=== PATIENT | male | born 1975 | race Caucasian/White ===

== ENCOUNTER 2020-04-20 02:29 | Outpatient (CLI) | payer BC, SELFPAY ==
[2020-04-20 12:46] LABS: TSH (W/Ref FT4) 2.17 uIU/mL (0.36-3.74)
[2020-04-20 14:39] LABS: ALT 56 U/L (16-63); AST 43 U/L (15-37); Albumin 3.8 g/dL (3.4-5.0); Alkaline Phosphatase 56 U/L (46-116); Anion Gap 7.7 mmol/L (3-11); BUN 16 mg/dL (7-18); Bilirubin, Total 0.5 mg/dL (0.2-1.0); CO2 26.3 mmol/L (21.0-32.0); CREATININE 0.89 mg/dL (0.70-1.30); Calcium 8.8 mg/dL (8.5-10.1); Calculated LDL 108 mg/dL (<100); Chloride 105 mmol/L (98-107); Cholesterol 172 mg/dL (<200); Glucose 105 mg/dL (74-106); HDL Cholesterol 48 mg/dL (40-60); Potassium 4.4 mmol/L (3.5-5.1); Sodium 139 mmol/L (136-145); Total Protein 6.9 g/dL (6.4-8.2); Triglyceride 80 mg/dL (<150)
== END 2020-04-20 02:49 ==
PROVIDERS: PCP Family Medicine; Visit Provider Family Medicine
DX: E03.9 Hypothyroidism, unspecified (principal); E78.5 Hyperlipidemia, unspecified
CPT/HCPCS: 36415; 80053; 80061; 84443

== ENCOUNTER 2020-12-09 09:26 | Outpatient (CLI) | payer OTHER, SELFPAY ==
[2020-12-10 20:01] LABS: COVID-19 RT-PCR UVMMC Result Positive (Negative)
== END 2020-12-09 09:27 | disposition home or self-care (01) ==
PROVIDERS: PCP Family Medicine; Visit Provider Family Medicine
DX: Z20.822 Contact with and (suspected) exposure to COVID-19 (principal)
CPT/HCPCS: U0003

== ENCOUNTER 2022-11-25 12:02 | Day surgery (SDC) | payer BC, SELFPAY ==
--- NOTE | 2022-11-25 05:28 | W.COLOREPORT ---
Date of service: 11/25/22 Time of Service: 15:14 Colonoscopy Report Date of procedure: 11/25/22 Pre-op diagnosis general: Screening colonoscopy Post-op diagnosis procedure note: other (Colon polyps) Procedure: Colonoscopy with polypectomy Surgeon: Gil Winters Anesthesia Type: General LMA/ETT Estimated blood loss (mL): 5 Pathology: other (Polyps at 20 cm) Complications: None Disposition: same day Indications: José Miguel is 47 years old. He is here for his first screening colonoscopy Prep: Miralax/Dulcolax Procedure Start Time: 14:50 Procedure End Time: 15:08 Retraction Time: 12 Findings: Colon polyps at 20 cm Procedure Description: After the induction of monitored anesthetic care, and with the patient in left lateral decubitus position, I began by performing an external anorectal exam.? Perineum and skin were normal, as was the anal verge.? There was no evidence of external hemorrhoids.? Next, I performed a digital rectal exam.? I did not appreciate any abnormal findings.? Next, I advanced a colonoscope into the rectal vault.? I performed retroflexion.? This appeared normal to me..? Using insufflation, I then advanced the colonoscope beyond the rectal folds and into the sigmoid colon before advancing towards the cecum.? The quality of the prep was adequate.? The scope was noted to be in the cecum by identification of the ileocecal valve and appendiceal orifice.? I then began withdrawing the colonoscope using repeated irrigation as necessary for full evaluation of the colonic mucosa. Around 20 cm from the anal verge I identified 2 sessile polyps. ?Both were about 0.25 cm. I removed both with cold forcep polypectomy.. ?I examined the area, and there was minimal bleeding. ?Once this was completed, I continued to withdraw the scope and examine the remainder of the colonic mucosa.?Once the scope was withdrawn to the level of the rectum, great care was taken to examine portions of the rectal folds.? Finally, the scope was withdrawn and the patient was brought to the same-day surgery recovery unit as the anesthetic wore off. ?The findings and instructions were shared with the patient prior to discharge.
--- NOTE | 2022-11-25 05:29 | W.PM.DSUDISC ---
Date of service: 11/25/22 Time of Service: 15:13 Discharge Plan Disposition Patient Disposition: Home Condition: Good Discharge Details Reason For Visit: Colonoscopy Attending Provider: Gil Winters Primary Care Provider: Gio Hanks Home Meds and New Rx's Prescriptions: Continued levothyroxine 150 mcg tablet 150 mcg PO DAILY Qty: 90 3RF Discontinued bisacodyl [Dulcolax (bisacodyl)] 5 mg tablet,delayed release (DR/EC) 5 mg PO ONCE Qty: 4 0RF Rx Instructions: Take according to provider's instructions for colonoscopy prep. polyethylene glycol 3350 17 gram/dose powder 17 g PO ONCE Qty: 238 0RF Rx Instructions: To be taken as directed by prescriber's office for colonoscopy prep. Discharge Instructions Instructions: Colorectal Polyps (GEN) Additional Instructions: José Miguel, we were able to complete your colonoscopy today without any issues. You had 2 small polyps that I removed completely. It will take a little time to get the results of what kinds of polyps they are. I will be in touch at that point and recommend the timeline for your next colonoscopy. If you have any questions at all, please feel free to give me a call. 1. If tolerated, consume a soft, low fiber diet for 1-2 days. 2. Do not drive, drink alcohol, operate machinery, make critical decisions, or do activities that require coordination or balance for 24 hours. 3. Because air was put into your colon during the procedure, expelling air from your rectum (passing gas or farting) is normal. 4. You may not have a bowel movement for 1-3 days because of the colonoscopy prep. This is normal. 5. Go directly to the emergency room if you notice any of the following: Develop chills (warm to touch), or if you have a thermometer and your temperature is above 101 Difficulty breathing or difficultly swallowing Persistent vomiting Severe abdominal pain, other than gas cramps Severe chest pain Black, tarry stools Any bleeding ? exceeding one tablespoon 6. Call your physician if the site where your intravenous was started becomes red, swollen, painful, and warm to touch. 7. Your physician has reviewed your pre-procedure medications. Please continue to take those medications as previously ordered. You will be given specific information/education regarding any changes to your medications before leaving. Activity:: Activity as Tolerated Diet:: As Tolerated Discharge Orders Discharge Orders: Discharge Order (Routine); Ordered 11/25/22 Ordered By: Gil Winters
[2022-11-25 13:22] VITALS: BP 149/101; PULSE 63; RESP 16; TEMP 36.3; O2SAT 99
--- NOTE | 2022-11-25 14:03 | W.ANESPRE ---
General Info Date of Service Date Performed: 11/25/22 Height: 6 ft 5 in Weight: 131.9 kg Body Mass Index (BMI): 34.4 Surgical Procedure: Operation Date: 11/25/22 14:35 Proposed Procedure Side Surgeon p Nawaf Winters MD Meds Allergies and Home Medications Allergies Allergy/AdvReac Type Severity Reaction Status Date / Time No Known Allergies Allergy Verified 11/24/22 14:52 Home Medication Medication Instructions Recorded levothyroxine 150 mcg tablet 150 mcg PO DAILY #90 tabs 07/29/22 Current Visit Medications: Current Medications Generic Name Dose Route Start Last Admin Trade Name Freq PRN Reason Stop Dose Admin Hyoscyamine Sulfate 0.125 mg 11/25/22 05:30 Hyoscyamine 0.125 Mg Sl/Oral/Chew SL DIRECTED PRN Ringer's Solution 1,000 mls @ 80 mls/hr 11/25/22 06:00 IV 11/25/22 23:59 INFUSION KIRBY IV Miscellaneous Supplies 1 each 11/25/22 06:00 Iv Access IV 11/25/22 23:59 DIRECTED KIRBY Ondansetron HCl 4 mg 11/25/22 05:30 Ondansetron 4 Mg/2 Ml Vial IVP Q4H PRN PRN Nausea / Vomiting Sodium Chloride 0 ml 11/25/22 06:00 Normal Saline Flush 10 Ml Syr IV 11/25/22 23:59 PRN PRN Sodium Chloride 0 ml 11/25/22 06:00 Normal Saline 10 Ml Vial IJ 11/25/22 23:59 DIRECTED PRN Sterile Water 0 ml 11/25/22 06:00 Water,Injection,Sterile 10 Ml Vial IJ 11/25/22 23:59 DIRECTED PRN PFSH Active Problems Active Problems: Problem Status Onset Code Encounter for screening for malignant neoplasm of colon Z12.11 COVID-19 U07.1 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, initial encounter 06/12/20 S64.490A Laceration of right hand 06/12/20 S61.411A Benign positional vertigo H81.10 Migraine aura without headache G43.109 ADD (attention deficit disorder) F98.8 Sciatica M54.30 Hypothyroid E03.9 Hypertension I10 Hyperlipidemia E78.5 Fatty liver K76.0 Hemorrhoids K64.9 Medical History Medical History Hyperopia of both eyes with astigmatism Medical History Comments:: Dad has hard time going under due to alcohol consumption Surgical History Surgical History History of vasectomy Tobacco Smoking/Tobacco Use Status: Former Tobacco Use Alcohol Alcohol Intake: current Alcohol intake frequency: 0-2 drinks per day Alcohol type: beer Substance Use Substance use: Occasionally Substance use type: marijuana Details: alcohol t-21 days marijuana t-3 inhalation Vital Signs and Lab Results Vital Signs Most Recent Vital Signs in EMR: Most Recent Vital Signs Temp Pulse Resp BP Pulse Ox 36.3 C L 63 16 149/101 H 99 11/25/22 13:22 11/25/22 13:22 11/25/22 13:22 11/25/22 13:22 11/25/22 13:22 Lab Results Blood Type / Crossmatch: No Data to Display Complete Blood Count: No Data to Display Complete Metabolic Panel: No Data to Display Liver Function Panel: No Data to Display Coagulation Panel: No Data to Display Cardiac Panel: No Data to Display Arterial Blood Gas: No Data to Display Venous Blood Gas: No Data to Display Pancreas Panel: No Data to Display Thyroid Panel: No Data to Display Infectious Disease: No Data to Display Blood Cultures: No Data to Display Toxicology Panel: No Data to Display Anesthesia Assessment and Plan Anesthesia History Personal History: No History of Anesthesia Complications Family History: No Family History of Anesthesia Complications and Other Exercise Tolerance Exercise Tolerance: Metabolic Equivalents>4 Pertinent Negatives Pertinent Negatives: No Symptoms of GERD Cardiac & Pulmonary Exam Cardiac Exam: Normal S1/S2 Heart Sounds Pulmonary Exam: Clear Bilateral Breath Sounds Implantable Cardiac Device Does patient have a Pacemaker or an ICD?: No Airway Exam Known Difficult Airway: No Mallampati Class: 1 Mouth Opening: Normal (> 3cm) Thyromental Distance: Greater than 3 cm Neck Range of Motion: Full ROM Neck Circumference: Normal Teeth Condition: Normal Dentition ASA Classification ASA Score: ASA 2 Emergency Case?: No NPO Status NPO Status: NPO Clears >2 hours, Solids >8 hours Anesthesia Plan Resuscitation Status: Full Code Anesthesia Technique: General Anesthesia Airway Planned: Natural Airway Monitors Used: Standard Monitors
[2022-11-25] MEDS: Lactated Ringers 1,000 ML 80 ML IV (14:07)
[2022-11-25 14:33] VITALS: BMI 34.4
--- NOTE | 2022-11-25 15:04 | BOWEL_PTH ---
PATIENT: José Miguel Auguste LOC: [facility] U#:[id number] AGE/SX: 47/M ROOM: RE11/25/[address]: Gil Winters MD : 1975 BED: DIS: 11/25/2022 SPEC #: [id number] RECD: 11/25/22 16:30 STATUS: CHLOE REQ #: [id number] CHET: 11/25/22 15:[address]: Gil Winters DEPT: Surgical Specimen RECD BY: Jada Velazco ENTERED: 11/25/22 16:31 SP TYPE: Bowel OTHR DR: Gio Hanks DO Tissues: 1 - BIOPSY BOWEL Procedures: GROSS AND MICRO LEVEL 4 Comments: [id number]
[2022-11-25 15:14] VITALS: BP 133/88; PULSE 77; RESP 18; TEMP 36.3; O2SAT 95
--- NOTE | 2022-11-25 15:22 | W.ANESPOSTOP ---
Postoperative Evaluation Date, Time and Location Date Performed: 11/25/22 Time Performed: 15:23 Patient Location: Day Surgery Unit Vital Signs Most Recent Imported Vital Signs: Most Recent Vital Signs Temp Pulse Resp BP Pulse Ox 36.3 C L 77 18 133/88 95 11/25/22 15:14 11/25/22 15:14 11/25/22 15:14 11/25/22 15:14 11/25/22 15:14 Pain Score Most Recent Pain Score: Most Recent Pain Score Pain Level 0 11/25/22 15:14 Assessment Mental Status: Awake (Alert & Oriented to Patient Baseline) Airway and Respiratory Function: Patent airway with normal (patient baseline) respiratory exam Cardiovascular Function: Hemodynamically Stable Hydration Status: Adequately Hydrated Nausea & Vomiting: No Nausea or Vomiting Pain: Pt. Denies Any Pain Peripheral Nerve Block: Patient did not receive a nerve block
[2022-11-25 15:41] VITALS: BP 142/98; PULSE 61; RESP 16; TEMP 36.5; O2SAT 96
== END 2022-11-25 15:55 | disposition home or self-care (01) ==
PROVIDERS: PCP Family Medicine; Visit Provider Surgery
PROC: 0DJD8ZZ Inspection of Lower Intestinal Tract, Via Natural or Artificial Opening Endoscopic (ICD-10-PCS; CPT 45378; principal; 2022-11-25 14:30)
DX: Z12.11 Encounter for screening for malignant neoplasm of colon (principal); K63.5 Polyp of colon
CPT/HCPCS: 45380; 88305; J2704

== ENCOUNTER 2023-08-15 03:15 | Outpatient (CLI) | payer BC, SELFPAY ==
[2023-08-15 08:06] LABS: ALT 86 U/L (16-63); AST 40 U/L (15-37); Albumin 3.8 g/dL (3.4-5.0); Alkaline Phosphatase 67 U/L (46-116); Anion Gap 6.2 mmol/L (3-11); BUN 13 mg/dL (7-18); Bilirubin, Total 0.6 mg/dL (0.2-1.0); CO2 28.8 mmol/L (21.0-32.0); CREATININE 0.9 mg/dL (0.70-1.30); Calcium 8.5 mg/dL (8.5-10.1); Calculated LDL 145 mg/dL (<100); Chloride 104 mmol/L (98-107); Cholesterol 213 mg/dL (<200); Estimated GFR 105.35 (mL/min/1.73m2); Glucose 142 mg/dL (74-106); HDL Cholesterol 53 mg/dL (40-60); Potassium 4.5 mmol/L (3.5-5.1); Sodium 139 mmol/L (136-145); TSH (W/Ref FT4) 0.92 uIU/mL (0.36-3.74); Total Protein 7.5 g/dL (6.4-8.2); Triglyceride 75 mg/dL (<150)
== END 2023-08-15 03:16 | disposition home or self-care (01) ==
LOC: LBO 03:15
PROVIDERS: Absent Provider Family Medicine; PCP Family Medicine; Referring Provider Family Medicine; Visit Provider Family Medicine
DX: E03.9 Hypothyroidism, unspecified (principal); E66.9 Obesity, unspecified
CPT/HCPCS: 36415; 80053; 80061; 84443

== ENCOUNTER 2025-03-14 09:50 | Outpatient (CLI) | payer BC, SELFPAY ==
[2025-03-14 10:16] LABS: TSH (W/Ref FT4) 5.09 uIU/mL (0.36-3.74)
[2025-03-14 10:37] LABS: FREE T4 0.63 ng/dL (0.76-1.46)
== END 2025-03-14 09:51 | disposition home or self-care (01) ==
LOC: LBO 09:51
PROVIDERS: PCP Family Medicine; Visit Provider Family Medicine
DX: E03.9 Hypothyroidism, unspecified (principal)
CPT/HCPCS: 36415; 84439; 84443